=== PATIENT | female | born 1995 | race Caucasian/White ===

== ENCOUNTER 2016-07-07 20:24 | Emergency (ER) | payer BC ==
[~2016-07-07] VITALS: Ht 167.6 cm; Wt 100.0 kg
[2016-07-07 20:37] VITALS: BP 134/76; TEMP 98
[2016-07-07] MEDS ORDERED: BIRTH CONTROL (20:41)
[2016-07-07 23:06] VITALS: PULSE 60
== END 2016-07-07 23:07 | disposition home or self-care (01) ==
LOC: COL.ER 20:24
DX: S23.3XXA Sprain of ligaments of thoracic spine, initial encounter (principal); V43.52XA Car driver injured in collision with other type car in traffic accident, initial encounter; Y92.410 Unspecified street and highway as the place of occurrence of the external cause; S06.0X0A Concussion without loss of consciousness, initial encounter